=== PATIENT | male | born 1995 | race Caucasian/White ===

== ENCOUNTER 2018-01-24 23:29 | Emergency (ER) | payer OTHER ==
[2018-01-24 23:35] VITALS: BP 129/73
--- NOTE | 2018-01-25 00:10 | EDPHY ---
H & P Stated Complaint: R ankle injury - Personal History Current Tetanus/Diphtheria Vaccine: Yes Current Tetanus Diphtheria and Acellular Pertussis (TDAP): Yes - Medical/Surgical History Hx Asthma: No Hx Chronic Respiratory Disease: No Hx Diabetes: No Hx Cardiac Disease: No Hx Renal Disease: No Hx Cirrhosis: No Hx Alcoholism: No Hx HIV/AIDS: No Hx Splenectomy or Spleen Trauma: No Other PMH: Denies - Social History Smoking Status: Never smoked Time Seen by Provider: 01/24/18 23:45 HPI/ROS: Chief complaint: Right ankle injury History of present illness: This is a 22-year-old male who presents to the emergency department for a right ankle injury. Patient was bouldering when he fell off the wall landing onto his ankle and twisting it. Since then he has had pain and swelling. No report of open wounds. No abnormal coolness or paresthesias in the foot. No report of trauma to other parts of the body. ( Pelon Chahal) - Physical Exam Exam: General: Alert, nontoxic Skin: No open wounds to the right lower extremity. Musculoskeletal: Edema to the ankle. Tenderness over the lateral aspect of the ankle. Achilles is intact. The knee, proximal lower leg and foot are nontender. He can move the toes well. Muscle compartments are soft. Vascular: DP and PT pulses 2+. Cap refill brisk in the right toes. Neurologic: Sensation intact throughout the right foot and leg. (Pelon Chahal) Constitutional: Initial Vital Signs Temperature (C) 36.5 C 01/24/18 23:30 Heart Rate 63 01/24/18 23:30 Respiratory Rate 16 01/24/18 23:30 Blood Pressure 129/73 H 01/24/18 23:30 O2 Sat (%) 98 01/24/18 23:30 O2 Delivery Mode Room Air Allergies/Adverse Reactions: No Known Allergies Allergy (Unverified 01/24/18 23:35) Home Medications: Medication Instructions Recorded NK [No Known Home Meds] 01/24/18 Medical Decision Making - Diagnostics Imaging: I viewed and interpreted images myself - Diagnostics Imaging Results: Imaging Impressions Ankle X-Ray 01/24/18 23:37 Impression: Minimally displaced oblique spiral intra-articular distal right fibula metaphyseal fracture. Procedures: Procedure: Splint placement. A posterior short-leg splint was applied. After application of the splint I returned and re-examined the patient. The splint was adequately immobilizing the joint and distal to the splint the patient's circulation and sensation was intact. (Pelon Chahal) ED Course/Re-evaluation: Patient seen under the supervision of my secondary supervising physician Dr. Pippa Rich. Patient presents for a right ankle injury. X-ray confirms a fracture. The leg is neurovascularly intact. By history and physical exam no evidence of trauma to other parts of the body. Patient is splinted. He is discharged home. He is referred to orthopedics for recheck next week. Return precautions are given. The patient voiced understanding and agreement with plan. (Pelon Chahal) PHYSICIAN DOCUMENTATION: The patient was evaluated and managed by the Physician Prepress Supervisor. My co- signature indicates that I have reviewed this chart and I agree with the findings and plan of care as documented. I am the secondary supervising physician. (Pippa Rich) Differential Diagnosis: Included but not limited to contusion, sprain or strain, bony fracture (Pelon Chahal) - Data Points Medications Given: Discontinued Medications Hydrocodone Bitart/Acetaminophen ([place] 5/325mg Prepack#6) 1 btl TAKEHOME EDNOW ONE Stop: 01/25/18 00:13 Last Admin: 01/25/18 00:18 Dose: 1 btl Ibuprofen (Motrin) 800 mg PO EDNOW ONE Stop: 01/25/18 00:12 Last Admin: 01/25/18 00:18 Dose: 800 mg Departure - Departure Disposition: Home, Routine, Self-Care Clinical Impression: Ankle fracture Qualifiers: Encounter type: initial encounter Fracture type: closed Laterality: right Qualified Code(s): S82.891A - Other fracture of right lower leg, initial encounter for closed fracture Condition: Good Instructions: Hydrocodone/Acetaminophen (By mouth), Ankle Fracture (ED) Additional Instructions: Follow-up with Orthopedics next week for recheck Use ibuprofen 600 mg 3 times a day for the next 2-3 days for pain control Elevate the injury as much as possible Ice the injury, 20 min on, 3 times daily for the next 3 days If symptoms worsen or new symptoms develop return to the emergency room for recheck Referrals: NONE *PRIMARY CARE P,. [Primary Care Provider] - As per Instructions Crispin Powers MD [Medical Doctor] - As per Instructions
[2018-01-25] MEDS ORDERED: IBUPROFEN 800 MG TAB PO ONE (00:11)
[2018-01-25] MEDS ORDERED: HYDROCOD/APAP 5/325 PREPACK#6 BTL TAKEHOME ONE (00:12)
== END 2018-01-25 00:25 | disposition home or self-care (01) ==
DX: S82.441A Displaced spiral fracture of shaft of right fibula, initial encounter for closed fracture (principal); S82.431A Displaced oblique fracture of shaft of right fibula, initial encounter for closed fracture; W19.XXXA Unspecified fall, initial encounter

== ENCOUNTER 2018-01-31 05:41 | Day surgery (SDC) | payer OTHER ==
--- NOTE | 2018-01-30 21:37 | GHP ---
[f rep st] PREOP HISTORY AND PHYSICAL DATE OF ADMISSION: 01/31/2018 DATE OF SURGERY: 01/31/2018. CHIEF COMPLAINT: Right ankle. HISTORY OF PRESENT ILLNESS: Patient is a 22-year-old, who sustained a fall while climbing. PAST MEDICAL HISTORY: Unremarkable. MEDICINES: ALLERGIES: No drug allergies. SOCIAL HISTORY: PHYSICAL EXAM: HEENT: Head is normocephalic. Pupils equal, round, and reactive to light. Sclerae intact. GENERAL APPEARANCE: He is alert and oriented x3 in mild distress secondary to his ankle. CHEST: Clear to auscultation. HEART: Regular rate and rhythm. No murmurs or gallops. ABDOMEN : Soft, nontender, and nondistended. No organomegaly. GENITAL/RECTAL/BREASTS : Deferred. EXTREMITIES: Marked tenderness to right ankle lateral malleolus ASSESSMENT: Right lateral malleolus fracture. PLAN: ORIF right lateral malleolus fracture. /[id number]/MODL MTDD
[2018-01-31] MEDS ORDERED: ceFAZolin 2 GM/DEXTROSE 100 ML IV ONE (05:46)
[2018-01-31] MEDS ORDERED: LIDOCAINE 1% 2 ML INJ ID PRN (05:47)
[2018-01-31] MEDS ORDERED: LR 1,000 ML IV ONE (05:47)
[2018-01-31] MEDS ORDERED: fentaNYL 100 MCG/2 ML INJ ONE (06:37)
[2018-01-31] MEDS ORDERED: PROPOFOL 200 MG/20 ML VIAL ONE (06:37)
[2018-01-31] MEDS ORDERED: MIDAZOLAM 2 MG/2 ML VIAL IVP ONE (06:49)
--- NOTE | 2018-01-31 06:49 | PDANEPAE ---
ANE History of Present Illness traumatic fx here for ORIF ANE Past Medical History - Cardiovascular History Hx Hypertension: No Hx Arrhythmias: No Hx Chest Pain: No Hx Coronary Artery / Peripheral Vascular Disease: No Hx CHF / Valvular Disease: No Hx Palpitations: No Cardiovascular History Comment: VASOVAGAL RESPONSE IN PAST - Pulmonary History Hx COPD: No Hx Asthma/Reactive Airway Disease: No Hx Recent Upper Respiratory Infection: No Hx Oxygen in Use at Home: No Hx Sleep Apnea: No Sleep Apnea Screening Result - Last Documented: Negative - Neurologic History Hx Cerebrovascular Accident: No Hx Seizures: No Hx Dementia: No - Endocrine History Hx Diabetes: No - Renal History Hx Renal Disorders: No - Liver History Hx Hepatic Disorders: No - Neurological & Psychiatric Hx Hx Neurological and Psychiatric Disorders: No - Cancer History Hx Cancer: No - Congenital Disorder History Hx Congenital Disorders: No - GI History Hx Gastrointestinal Disorders: No - Other Health History Other Health History: NEG - Chronic Pain History Chronic Pain: No - Surgical History Prior Surgeries: NONE ANE Review of Systems Review of Systems: - Exercise capacity Exercise capacity: >=4 METS METS (RN): 6 METS ANE Patient History - Allergies Allergies/Adverse Reactions: No Known Allergies Allergy (Unverified 01/24/18 23:35) - Home Medications Home Medications: Ibuprofen 01/29/18 [Last Taken 01/28/18] Vicodin 5-300 mg Tablet 01/29/18 [Last Taken 01/28/18] - NPO status NPO Status: no food or drink >8 hours NPO Since - Liquids (Date): 01/31/18 NPO Since - Liquids (Time): 00:00 NPO Since - Solids (Date): 01/30/18 NPO Since - Solids (Time): 22:00 - Anes Hx Anes Hx: no prior problems - Smoking Hx Smoking Status: Never smoked - Alcohol Use Alcohol Use: Occasionally - Family Anes Hx Family Anes Hx: none ANE Labs/Vital Signs - Vital Signs Blood Pressure: 137/82 Heart Rate: 83 Respiratory Rate: 18 O2 Sat (%): 96 Height: 190.5 cm Weight: 81.647 kg ANE Physical Exam - Airway Neck exam: FROM Mallampati Score: Class 2 Mouth exam: normal dental/mouth exam - Pulmonary Pulmonary: no respiratory distress, clear to auscultation - Cardiovascular Cardiovascular: regular rate and rhythym, no murmur, rub, or gallop - ASA Status ASA Status: I ANE Anesthesia Plan Anesthesia Plan: GA w LMA [facility] Anesthesia: single shot NB, popliteal SNB
[2018-01-31] MEDS ORDERED: MIDAZOLAM 2 MG/2 ML VIAL ONE (07:17)
[2018-01-31] MEDS ORDERED: NALOXONE HCL 0.4 MG/ML INJ IVP PRN (08:24)
[2018-01-31] MEDS ORDERED: PROMETHAZINE HCL 25 MG/ML INJ IVP PRN (08:24)
[2018-01-31] MEDS ORDERED: fentaNYL 100 MCG/2 ML INJ IVP PRN (08:24)
[2018-01-31] MEDS ORDERED: ONDANSETRON 4 MG/2 ML VIAL IVP PRN (08:24)
--- NOTE | 2018-01-31 08:24 | POSTANESTH ---
Post Anesthetic Evaluation Cardiovascular Status: Normal, Stable, Similar to Pre-Op Cond Respiratory Status: Normal, Stable, Similar to Pre-op Cond. Level of Consciousness/Mental Status: Can Participate in Eval, Alert and Oriented Pain Control: Adequate, Prn Tx Ordered Nausea/Vomiting Control: Adequate, Prn Tx Ordered Complications Possibly Related to Anesthesia: None Noted
--- NOTE | 2018-01-31 08:25 | POSTOPPROG ---
Post Op Note Date of Operation: 01/31/18 Surgeon: Eddi Ruiz Anesthesia: LMA Pre-op Diagnosis: R lat mal fx Post-op Diagnosis: same Procedure: ORIF R lat mal fx Inf/Abcess present in the surg proc area at time of surgery?: No EBL: Minimal
[2018-01-31 09:03] VITALS: BP 116/68
--- NOTE | 2018-01-31 11:04 | GOP ---
[f rep st] OPERATIVE REPORT DATE OF OPERATION: 01/31/2018 SURGEON: Eddi Ruiz MD ANESTHESIA: General plus popliteal block performed by the anesthesiologist at my request for postoperative pain management. PREOPERATIVE DIAGNOSIS: Right lateral malleolus fracture. POSTOPERATIVE DIAGNOSIS: Right lateral malleolus fracture. PROCEDURE PERFORMED: Open reduction, internal fixation, right lateral malleolus fracture. FINDINGS: ESTIMATED BLOOD LOSS: Minimal. INDICATIONS: Patient is a 22-year-old, who sustained a fall while climbing resulting in a right lateral malleolus fracture. Based on the displaced unstable nature of his injury it was recommended that operative treatment consisting of open reduction, internal fixation be pursued. The patient acknowledged he understood the potential risks of the operation, including but not limited to, bleeding, infection, neurovascular damage, loss of limb or limb function, malunion, nonunion, need for hardware removal, pain or functional limitations despite operative treatment, and anesthetic risks. He acknowledged he understood the potential risks, planned procedure, and postoperative plan well, and had all questions answered prior to surgery. He gave his consent for the operative procedure. DESCRIPTION OF PROCEDURE: The patient was brought to the operating room after IV antibiotics were administered. Popliteal block was performed by the anesthesiologist in preop holding at my request for postoperative pain management. He was placed in a supine position where general anesthetic was administered. A tourniquet was placed on his right calf, and the patient was transferred to a left lateral decubitus position on the operating room table with beanbag support, axillary roll, padding all bony surfaces. The right lower leg was prepped and draped in standard sterile fashion. After marking the incision an Adrian wrap exsanguination, the tourniquet was inflated to 250. A longitudinal incision was made just posterior to the distal fibula. Skin and subcutaneous tissue were sharply incised. Sharp dissection was carried just anterior to the peroneal tendons exposing the posterolateral aspect of the distal fibula. Limited periosteal reflection of the fracture site was performed , allowed reduction and hardware placement. Interpose fibrous tissue was carefully teased away with a dental pick. Based on the nature of the fracture plane a posterior "antiglide" plating approach was utilized. A 6 hole 1/3 tubular plate was malleted flat at its distal-most aspect. Just proximal to the fracture through the plate a 3.5 mm bicortical screw was placed in a posterior to anterior direction. As the screw was tightened, the fracture was anatomically reduced with the aid of a dental pick. With the fracture held in anatomically reduced fashion through the plate across the fracture site. A supplemental 3.5 mm bicortical screw was placed in the most proximal hole in the plate. Fluoroscopic views confirmed anatomic reduction and favorable hardware placement. Attention was directed toward closure. The deep fascia overlying the peroneal tendons was closed with 3-0 Vicryl suture in interrupted fashion. Subcutaneous tissue was closed with 3-0 Vicryl suture in interrupted fashion. The skin was closed with 4-0 nylon interrupted sutures. Wounds were dressed with sterile Adaptic, 4 x 4, and Webril and the leg was placed in a below the knee splint. The patient tolerated the procedure well, was taken to the recovery room, extubated in stable condition postoperatively. All sponge, needle, and instrument counts were reported to be correct. DRAINS: None. COMPLICATIONS: None. PLAN: The patient will be discharged home nonweightbearing on his operative extremity. /[id number]/MODL MTDD
== END 2018-01-31 10:00 | disposition home or self-care (01) ==
LOC: FSGY 05:41
PROVIDERS: ATTEND Orthopaedic Surgery Foot and Ankle Surgery
PROC: 0QSJ04Z Reposition Right Fibula with Internal Fixation Device, Open Approach (ICD-10-PCS; principal; 2018-01-31 07:15)
DX: S82.61XA Displaced fracture of lateral malleolus of right fibula, initial encounter for closed fracture (principal); Y93.31 Activity, mountain climbing, rock climbing and wall climbing; W19.XXXA Unspecified fall, initial encounter; Y99.8 Other external cause status
CPT/HCPCS: C1713; J0690; J2250; J2704; J3010

== ENCOUNTER 2018-03-16 22:12 | Observation (INO) | payer OTHER ==
[2018-03-16] MEDS ORDERED: METOCLOPRAMIDE 10 MG/2 ML VIAL IVP ONE (22:27)
[2018-03-16] MEDS ORDERED: NS 1,000 ML IV ONE ×2 (22:27→23:14)
--- NOTE | 2018-03-16 22:30 | EDPHY ---
H & P Stated Complaint: syncopal episode x3, lightheaded, nausea Time Seen by Provider: 03/16/18 22:19 HPI/ROS: Chief Complaint: Syncope, lightheaded HPI: 22-year-old male's presenting with 3 syncopal events today. Patient states he woke up this morning feeling very lightheaded. He got up and " blacked out". He did not fall or hit his head. He states later today he was sitting at a desk began feeling lightheaded again and once again lost consciousness. This happened a 3rd time about 30 min ago while at home at rest. He fractured his ankle under 25 of January in had surgery on January 31. He is currently in a walking boot. He has been ambulating and weight-bearing for the last few days. No chest pain. No shortness of breath. No palpitations. Does not have a history of similar episodes in the past. No family history of clots cardiac disease at a young age or sudden cardiac . He has had decreased appetite. Does not smoke. Drinks occasional alcohol but not heavily recently. No other drug use. ROS: 10 point Review of Systems is negative except as noted in the HPI. PMH: Ankle fracture Social History: No smoking, occasional alcohol, no recreational drug use Family History: non-contributory Physical Exam: Vital signs: Heart rate of 75, blood pressure 158/83, respiratory rate 18, oxygen saturations 100%, temperature 36.3. Gen: Awake, Alert, No Distress HEENT: Nose: no rhinorrhea Eyes: PERRLA, EOMI Mouth: Moist mucosa Neck: Supple, no JVD Chest: nontender, lungs clear to auscultation Heart: S1, S2 normal, no murmur Abd: Soft, non-tender, no guarding Back: no CVA tenderness, no midline tenderness Ext: Right foot is in an orthopedic boot. No calf tenderness or swelling, non- tender Skin: no rash Neuro: CN II-XII intact, Sensation grossly intact, Strength 5/5 in bilateral upper and lower extremities - Personal History Current Tetanus/Diphtheria Vaccine: No - Medical/Surgical History Hx Asthma: No Hx Chronic Respiratory Disease: No Hx Diabetes: No Hx Cardiac Disease: No Hx Renal Disease: No Hx Cirrhosis: No Hx Alcoholism: No Hx HIV/AIDS: No Hx Splenectomy or Spleen Trauma: No Other PMH: R ankle sx - Social History Smoking Status: Never smoked Constitutional: Initial Vital Signs Temperature (C) 36.3 C 03/16/18 22:13 Heart Rate 75 03/16/18 22:13 Respiratory Rate 18 03/16/18 22:13 Blood Pressure 158/83 H 03/16/18 22:13 O2 Sat (%) 100 03/16/18 22:13 O2 Delivery Mode Room Air Allergies/Adverse Reactions: No Known Allergies Allergy (Verified 03/16/18 22:16) Home Medications: Medication Instructions Recorded NK [No Known Home Meds] 03/16/18 Medical Decision Making - Diagnostics EKG Interpretation: ECG time 10/08/2033, sinus rhythm with a rate of 58, normal axis, some nonspecific interventricular conduction delay. No acute ST or T-wave changes. ED Course/Re-evaluation: 22-year-old with nausea and syncope x3 today. He has got a nonspecific interventricular conduction delay on his ECG. Laboratory evaluations are unremarkable. He did have ankle surgery month and a half ago and is in a orthopedic boot. His D-dimer is normal. He is hydrated here. Will re- evaluate after IV hydration. Case discussed with Dr. Cowan, cardiology. He he has recommended that given the 3 syncopal events which were seemingly non provoked the patient should be admitted for telemetry and echocardiogram in the morning. He will plan to consult on the patient tomorrow. I have discussed with Dr. Wahl, hospitalist. He will admit to his service for further monitoring and care. - Data Points Laboratory Results: Laboratory Results 03/16/18 23:00 03/16/18 22:40 03/16/18 03/16/18 03/16/18 23:00 22:42 22:40 WBC 11.36 10^3/uL H 10^3/uL (3.80-9.50) RBC 5.09 10^6/uL 10^6/uL (4.40-6.38) Hgb 15.0 g/dL g/dL (13.7-17.5) Hct 42.9 % % (40.0-51.0) MCV 84.3 fL fL (81.5-99.8) MCH 29.5 pg pg (27.9-34.1) MCHC 35.0 g/dL g/dL (32.4-36.7) RDW 12.1 % % (11.5-15.2) Plt Count 250 10^3/uL 10^3/uL (150-400) MPV 9.2 fL fL (8.7-11.7) Neut % (Auto) 76.6 % H % (39.3-74.2) Lymph % (Auto) 12.0 % L % (15.0-45.0) [place] % (Auto) 7.7 % % (4.5-13.0) Eos % (Auto) 2.6 % % (0.6-7.6) Baso % (Auto) 0.4 % % (0.3-1.7) Nucleat RBC Rel Count 0.0 % % (0.0-0.2) Absolute Neuts (auto) 8.71 10^3/uL H 10^3/uL (1.70-6.50) Absolute Lymphs (auto) 1.36 10^3/uL 10^3/uL (1.00-3.00) Absolute Monos (auto) 0.88 10^3/uL H 10^3/uL (0.30-0.80) Absolute Eos (auto) 0.29 10^3/uL 10^3/uL (0.03-0.40) Absolute Basos (auto) 0.04 10^3/uL 10^3/uL (0.02-0.10) Absolute Nucleated RBC 0.00 10^3/uL 10^3/uL (0-0.01) Immature Gran % 0.7 % % (0.0-1.1) Immature Gran # 0.08 10^3/uL 10^3/uL (0.00-0.10) D-Dimer Sodium 136 mEq/L mEq/L (135-145) Potassium 4.1 mEq/L mEq/L (3.3-5.0) Chloride 103 mEq/L mEq/L (97-110) Carbon Dioxide 22 mEq/l mEq/l (22-31) Anion Gap 11 mEq/L mEq/L (8-16) BUN 13 mg/dL mg/dL (7-23) Creatinine 1.0 mg/dL mg/dL (0.7-1.3) Estimated GFR > 60 Glucose 108 mg/dL H mg/dL (70-100) Calcium 9.9 mg/dL mg/dL (8.5-10.4) Total Bilirubin 0.6 mg/dL mg/dL (0.1-1.4) AST 46 IU/L IU/L (17-59) ALT 56 IU/L IU/L (21-72) Alkaline Phosphatase 139 IU/L H IU/L (38-126) POC Troponin I 0.00 ng/mL ng/mL (0.00-0.08) Total Protein 8.1 g/dL g/dL (6.3-8.2) Albumin 4.9 g/dL g/dL (3.5-5.0) 03/16/18 22:40 WBC RBC Hgb Hct MCV MCH MCHC RDW Plt Count MPV Neut % (Auto) Lymph % (Auto) [place] % (Auto) Eos % (Auto) Baso % (Auto) Nucleat RBC Rel Count Absolute Neuts (auto) Absolute Lymphs (auto) Absolute Monos (auto) Absolute Eos (auto) Absolute Basos (auto) Absolute Nucleated RBC Immature Gran % Immature Gran # D-Dimer < 0.27 ug/mLFEU ug/mLFEU (0.00-0.50) Sodium Potassium Chloride Carbon Dioxide Anion Gap BUN Creatinine Estimated GFR Glucose Calcium Total Bilirubin AST ALT Alkaline Phosphatase POC Troponin I Total Protein Albumin Medications Given: Discontinued Medications Sodium Chloride (Ns) 1,000 mls @ 0 mls/hr IV ONCE ONE; Wide Open PRN Reason: Protocol Stop: 03/16/18 22:28 Last Admin: 03/16/18 22:39 Dose: 1,000 mls Sodium Chloride (Ns) 1,000 mls @ 0 mls/hr IV ONCE ONE; Wide Open PRN Reason: Protocol Stop: 03/16/18 23:15 Last Admin: 03/16/18 23:33 Dose: 1,000 mls Metoclopramide HCl (Reglan Injection) 10 mg IVP EDNOW ONE Stop: 03/16/18 22:28 Last Admin: 03/16/18 22:39 Dose: 10 mg Point of Care Test Results: Chemistry 03/16/18 22:42 POC Troponin I 0.00 ng/mL ng/mL (0.00-0.08) Departure - Departure Disposition: [facility] In[facility] Acute Clinical Impression: Syncope Condition: Fair Referrals: NONE *PRIMARY CARE P,. [Primary Care Provider] - As per Instructions
--- NOTE | 2018-03-16 22:36 | CPEKG ---
Heart Rate: 58 RR Interval: 1034 P-R Interval: 176 QRSD Interval: 116 QT Interval: 408 QTC Interval: 401 P Clements: 22 QRS Clements: 69 T Wave Clements: 51 EKG Severity - ABNORMAL ECG - EKG Impression: SINUS RHYTHM EKG Impression: NONSPECIFIC INTRAVENTRICULAR CONDUCTION DELAY Electronically Signed By: Phill Braga 17-Mar-2018 06:17:33
[2018-03-16 23:10] LABS: PLATELET COUNT 250 10^3/uL (150-400)
[2018-03-17] MEDS ORDERED: ONDANSETRON 4 MG/2 ML VIAL IVP PRN (00:01)
[2018-03-17] MEDS ORDERED: ONDANSETRON DISINTEGRATING 4 MG TAB PO PRN (00:01)
[2018-03-17] MEDS ORDERED: ACETAMINOPHEN 325 MG TAB PO PRN (00:01)
--- NOTE | 2018-03-17 01:27 | PDGENHP ---
History and Physical - Chief Complaint Syncope - History of Present Illness 22 yo M w/ no significant PMHx presents with syncope. The patient suffered 3 syncopal episodes today. The first two occurred while he was walking to bathroom in quick succession. The third occurred later in the day while he was sitting at his desk. He tells me just before losing consciousness he noted nausea, tunnel vision, and heart palpitations. He denies prior similar episodes or any prior cardiac or neurologic issues. He denies post-ictal confusion. He denies family history of early cardiac disease or sudden cardiac . At the time of my evaluation he is asymptomatic. He states he feels better after fluids. Case discussed with ED physician Dr. Braga; available records reviewed. Of note , he had a R ankle surgery about a month ago. He is in a walking boot for this. He states he is using acetaminophen only for pain control. History Information - Allergies/Home Medication List Allergies/Adverse Reactions: No Known Allergies Allergy (Verified 03/16/18 22:16) Home Medications: NK [No Known Home Meds] 03/16/18 [Last Taken Unknown] I have personally reviewed and updated: family history, medical history - Past Medical History no pertinent PMH - Surgical History Additional surgical history: R ankle surgery - Family History Additional family history: Denies family history of sudden cardiac - Social History Smoking Status: Never smoked Review of Systems Review of Systems: ROS: 10pt was reviewed & negative except for what was stated in HPI & below Physical Exam Physical Exam: Temp Pulse Resp BP Pulse Ox 36.9 C 61 16 145/77 H 94 03/17/18 00:44 03/17/18 00:44 03/17/18 00:44 03/17/18 00:44 03/17/18 00:44 Constitutional: no apparent distress, not in pain Eyes: PERRL, EOMI Ears, Nose, Mouth, Throat: moist mucous membranes, no oral mucosal ulcers Cardiovascular: regular rate and rhythym, no murmur, rub, or gallop Respiratory: no respiratory distress, clear to auscultation Gastrointestinal: normoactive bowel sounds, soft, non-tender abdomen Skin: warm, normal color Musculoskeletal: full muscle strength, no muscle tenderness, other (boot on R foot) Neurologic: AAOx3, CN II-XII Intact Psychiatric: interacting appropriately, not anxious Lab Data & Imaging Review 03/16/18 23:00 03/16/18 22:40 WBC 11.36 10^3/uL (3.80-9.50) H 03/16/18 23:00 RBC 5.09 10^6/uL (4.40-6.38) 03/16/18 23:00 Hgb 15.0 g/dL (13.7-17.5) 03/16/18 23:00 Hct 42.9 % (40.0-51.0) 03/16/18 23:00 MCV 84.3 fL (81.5-99.8) 03/16/18 23:00 MCH 29.5 pg (27.9-34.1) 03/16/18 23:00 MCHC 35.0 g/dL (32.4-36.7) 03/16/18 23:00 RDW 12.1 % (11.5-15.2) 03/16/18 23:00 Plt Count 250 10^3/uL (150-400) 03/16/18 23:00 MPV 9.2 fL (8.7-11.7) 03/16/18 23:00 Neut % (Auto) 76.6 % (39.3-74.2) H 03/16/18 23:00 Lymph % (Auto) 12.0 % (15.0-45.0) L 03/16/18 23:00 Grayson % (Auto) 7.7 % (4.5-13.0) 03/16/18 23:00 Eos % (Auto) 2.6 % (0.6-7.6) 03/16/18 23:00 Baso % (Auto) 0.4 % (0.3-1.7) 03/16/18 23:00 Nucleat RBC Rel Count 0.0 % (0.0-0.2) 03/16/18 23:00 Absolute Neuts (auto) 8.71 10^3/uL (1.70-6.50) H 03/16/18 23:00 Absolute Lymphs (auto) 1.36 10^3/uL (1.00-3.00) 03/16/18 23:00 Absolute Monos (auto) 0.88 10^3/uL (0.30-0.80) H 03/16/18 23:00 Absolute Eos (auto) 0.29 10^3/uL (0.03-0.40) 03/16/18 23:00 Absolute Basos (auto) 0.04 10^3/uL (0.02-0.10) 03/16/18 23:00 Absolute Nucleated RBC 0.00 10^3/uL (0-0.01) 03/16/18 23:00 Immature Gran % 0.7 % (0.0-1.1) 03/16/18 23:00 Immature Gran # 0.08 10^3/uL (0.00-0.10) 03/16/18 23:00 D-Dimer < 0.27 ug/mLFEU (0.00-0.50) 03/16/18 22:40 Sodium 136 mEq/L (135-145) 03/16/18 22:40 Potassium 4.1 mEq/L (3.3-5.0) 03/16/18 22:40 Chloride 103 mEq/L (97-110) 03/16/18 22:40 Carbon Dioxide 22 mEq/l (22-31) 03/16/18 22:40 Anion Gap 11 mEq/L (8-16) 03/16/18 22:40 BUN 13 mg/dL (7-23) 03/16/18 22:40 Creatinine 1.0 mg/dL (0.7-1.3) 03/16/18 22:40 Estimated GFR > 60 03/16/18 22:40 Glucose 108 mg/dL (70-100) H 03/16/18 22:40 Calcium 9.9 mg/dL (8.5-10.4) 03/16/18 22:40 Total Bilirubin 0.6 mg/dL (0.1-1.4) 03/16/18 22:40 AST 46 IU/L (17-59) 03/16/18 22:40 ALT 56 IU/L (21-72) 03/16/18 22:40 Alkaline Phosphatase 139 IU/L (38-126) H 03/16/18 22:40 POC Troponin I 0.00 ng/mL (0.00-0.08) 03/16/18 22:42 Total Protein 8.1 g/dL (6.3-8.2) 03/16/18 22:40 Albumin 4.9 g/dL (3.5-5.0) 03/16/18 22:40 Visualized and Interpreted EKG results: Yes EKG Interpretation: Positive for: normal sinsus rhythm Assessment & Plan Assessment: 22 yo M w/ no significant PMHx presents with syncope. Plan: 1. Syncope - Unclear etiology, occurred 3 times on the day of admission. Two episodes occurred while walking to the bathroom and once while sitting. He describes nausea, tunnel vision, and palpitations just prior to the episodes; no shaking, tongue biting, or post-ictal confusion to suggest seizures. He denies significant dehydration or poor PO intake. ECG relatively normal and in NSR (personally interpreted). - Admit to PCU for observation - S/p 2L IVF - Monitor on telemetry - TTE to assess cardiac structure and function - Orthostatic VS in the AM - Cardiology service consulted in the ED, will see patient in the morning Diet - Regular Code - Full Ppx - Low risk, ambulate TID Dispo - Admit under observation status
[2018-03-17 04:38] LABS: PLATELET COUNT 219 10^3/uL (150-400)
--- NOTE | 2018-03-17 09:27 | ASMTCMCOM ---
CM Note CM Note Notes: Chart reviewed. 22 year old male s/p ankle fracture in ortho boot suffered 3 syncopal episodes and is admitted via ED for cardiac workup. No needs anticipated at this time. CM available should needs arise. Plan: TBD likely home independently. Date Signed: 03/17/2018 09:26 AM Electronically Signed By:Ramona Schmitt RN
--- NOTE | 2018-03-17 11:42 | ECHO ---
[email or web address] [address] [address] Main: [phone] Fax: Transthoracic Echocardiogram Name: GURINDER JULIO MR#: [id number] Study Date: 03/17/2018 Study Time: 10:15 AM Date of : 1995 Age: 22 year(s) Height: 190.5 cm (75 in.) Weight: 81.65 kg (180 lb.) BSA: 2.1 m2 Gender: Male Examination: Echo Indication: Syncope Image Quality: Contrast: Requested by: Freddy Friedman BP: 142 mmHg/103 mmHg Heart Rate: Rhythm: Normal sinus rhythm Indication: Syncope Procedure Staff Senior Controls Engineer: Jarad Mae RDCS Reading Physician: Reuben Sanchez MD Requesting Provider: Conclusions: Normal global systolic LV function. EF is 62 %. The mitral valve is normal in appearance and function. The aortic valve is normal in appearance and function. Measurements: Chambers Valvular Assessment AV/MV Valvular Assessment TV/PV Normal Normal Normal Name Value Range Name Value Range Name Value Range Ao Alexandra (MM): 3.0 cm (2.2 cm-3.7 AV Vmax: 1.34 m/s (1 m/s-1.7 TR Vmax: 2.36 mm/s ( - ) cm) m/s) TR PGmax: 22 mmHg ( - ) IVSd (2D): 0.8 cm (0.6 cm-1.1 AV maxP mmHg ( - ) syst. PAP: 27 mmHg ( - ) cm) LVOT Vmax: 0.78 m/s (0.7 m/s-1.1 PV Vmax: 0.98 m/s (0.6 m/s-0.9 LVDd (2D): 4.8 cm (4.2 cm-5.9 m/s) m/s) cm) MV E Vmax: 0.81 m/s ( - ) PV PGmax: 4 mmHg ( - ) LVDs (2D): 3.2 cm (2.1 cm-4 MV A Vmax: 0.36 m/s ( - ) cm) MV E/A: 2.25 ( - ) LVPWd (2D): 1.0 cm (0.6 cm-1 cm) LVEF (2D): 62 (>=54 %) Continued Measurements: Chambers Valvular Assessment AV/MV Valvular Assessment TV/PV Name Value Name Value Name Value LADs Lon.1 cm MV E' Septal: 0.14 m/s CVP (est.): 5 mmHg LA Area: 15.4 cm2 MV E/E' Septal: 5.90 MV E/E' Lateral: 3.30 Patient: GURINDER JULIO Study Date: 03/17/2018 Page 1 of 2 10:15 AM Findings: Left Ventricle: Normal size left ventricle. No LV hypertrophy. Normal global systolic LV function. EF is 62 %. No regional wall motion abnormality. Normal diastolic LV function. Right Ventricle: Normal size right ventricle. Left Atrium: The left atrium is normal in size. Right Atrium: The right atrium is normal in size. Mitral Valve: The mitral valve is normal in appearance and function. Aortic Valve: The aortic valve is normal in appearance and function. Tricuspid Valve: The tricuspid valve is normal in appearance and function. Pulmonic Valve: The pulmonic valve is normal in appearance and function. Aorta: The aorta is normal. Pericardium: No pericardial effusion. (No Signature Object) Patient: GURINDER JULIO Study Date: 03/17/2018 Page 2 of 2 10:15 AM [id number]
--- NOTE | 2018-03-17 12:14 | GCON ---
[f rep st] CONSULTATION CARDIOLOGY CONSULTATION INDICATION FOR CARDIOLOGY CONSULTATION: Syncopal events. Requesting Consultation: Dr. Josh Grajeda of Hospitalist services. HISTORY OF PRESENT ILLNESS: The patient is a 22-year-old male. Reporting no significant cardiac history, stating over the last week is noticing a mild sore throat in which he felt he was recovering, no other symptoms out of his normal usual health. Stating yesterday afternoon around 2 p.m., was walking to the bathroom, and reporting felt a sudden lightheadedness, reporting tunnel vision, and reported falling to the ground. He reported waking up about 30 seconds later, feeling significant fatigue. Was able to go to the bathroom, and returned. Reported later in the day, having similar symptoms with another syncopal event lasting approximately the same amount of time, and felt that potentially he may be getting sick, but did not do anything. Later that evening , at 10 p.m., he was sitting at his desk, and reporting a 3rd event, with a total loss of consciousness for less than 30 seconds. He reports at that point , it raised concern and he came to the emergency department for further evaluation. He reports before any of his syncopal events, denying of any significant palpitations, potentially may be diaphoretic, but no nausea. He reported after event, with regaining consciousness, he felt a "heavy heartbeat "that lasted for approximately 10-15 minutes, reporting it as regular. Reports all events were witnessed by his roommate, reporting no seizure-like activities. Denies biting tongue. As mentioned above, reporting each incident with a loss of consciousness between 30 seconds to a minute. Denies of any incontinence. Upon arrival to the emergency department, electrocardiogram was done, showing sinus rhythm, normal axis, with nonspecific interventricular conduction delay. He reports no chest pressure or pain. As mentioned above, did have a sore throat for a week, but thought he was recovering. Denying of any fevers, chills , or night sweats. He had recently broke his right fibula while rock climbing approximately 5 weeks ago, in which required open reduction, internal fixation and recently had followed up with Orthopedics, reporting normal healing. He denies of any chest pressure or pain, reports no orthopnea, PND, edema, or symptoms suggestive of TIA or CVA. Denies of any significant current cardiac risk factors (no hypertension, hyperlipidemia, family history of coronary artery disease under the age of 60, peripheral vascular disease). Reports no family history of sudden cardiac . Upon arrival to the emergency department, it was felt best with his syncopal events, he be further admitted to the telemetry floor for further evaluation, in which he has been on continuous cardiac monitoring showing sinus rhythm, with no malignant arrhythmias or pauses. PAST MEDICAL HISTORY: The patient with recent fibula fracture. PAST SURGICAL HISTORY: Reporting 4 weeks ago, open reduction and internal fixation of right fibula. No other significant surgeries. FAMILY HISTORY: Patient does report paternal grandfather had a myocardial infarction, greater than age 60, but denies any family history of coronary artery disease, less than the age of 60, and no family history of sudden cardiac . SOCIAL HISTORY: The patient works part-time as an heat treating furnace tender, but with recent injury he is not doing it. 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 He is not . He lives with multiple roommates in a house. Denies any tobacco use, reports occasional alcohol use, denies of any illicit drug use. ALLERGIES: The patient has no known drug allergies. MEDICATIONS: At home, acetaminophen 325 mg p.o. daily p.r.n. REVIEW OF SYSTEMS: A 10-point review of systems done on patient, all negative except as mentioned above. PHYSICAL EXAMINATION: GENERAL APPEARANCE: Thin, well-groomed male. He is alert and oriented to person, place, time, situation. He appears to be under no acute distress. VITAL SIGNS: Current vital signs are blood pressure 145/85, heart rate 88, sinus rhythm on the monitor. Respirations are 12, saturating 99% on room air. Temperature of 36.7 degrees Celsius. HEENT: Head is normocephalic. Lips and tongue are pink and moist with no signs of cyanosis. Conjunctivae pink. NECK: Trachea is midline, +2 carotid pulses bilateral. No auscultated bruits, no jugular vein distention. RESPIRATORY: Lungs are clear to auscultation. No rhonchi, rales or wheezes, accessory muscle use. No intercostal muscle retraction noted. CARDIAC: Regular rate, regular rhythm, S1, S2. No S3, S4, gallops rubs or murmurs noted. ABDOMEN: Soft, nontender, bowel sounds x4 quadrants. No organomegaly. No palpable masses. SKIN: [place], warm, dry, no cyanosis, no clubbing, no peripheral edema. VASCULAR: +2 carotids bilateral, +2 radials bilateral, +1 dorsal pedal and posterior tibial pulses bilateral. LABORATORY STUDIES: Drawn this morning showing WBC of 9.43, hemoglobin of 14.0 , hematocrit of 40.0, platelet count 219. Sodium 142, potassium 4.0, chloride 106, CO2 was 25, BUN 11, creatinine 0.8, glucose 100, calcium 9.3, magnesium 1.9. Noted on admission, patient had a troponin of 0.00. D-dimer of less than 0.27. Noted mildly high alkaline phosphate of 139. Patient also had a tox screen, which was negative. STUDIES: Electrocardiogram, as mentioned above. ASSESSMENT AND PLAN: A 22-year-old male, with reported 1st onset of syncope with 3 events, 2 happening while standing going to the bathroom, and 1 happening sitting at his desk. He reports no irregular heartbeats or palpitations prior to the event, but "heavy heartbeats"after syncopal event lasting for approximately 10 15 min. Reporting as regular. Does report tunnel vision prior to each event. Report was witnessed by his roommates, with no seizure-like activity, biting, or postictal confusion. A 12-lead electrocardiogram done on admission was normal, negative D-dimer, negative troponin. Continuous equipment monitor phototypesetting has shown no malignant arrhythmias or pauses throughout his observation at PCU. Currently, transthoracic echocardiogram is pending. The patient did have orthostatic blood pressures done this morning showing no significant change between supine and standing, with normal heart rate response. At this time, echocardiogram is pending, if potentially no structural heart disease, would consider placing him on exercise treadmill, to see if inducible arrhythmias with stress. If that is negative, then would consider long-term monitoring, with setting him up with a 30-day [employer] monitor as an outpatient. This was discussed with the patient, and he was in agreement. Further recommendations, pending results of upcoming tests. /[id number]/MODL MTDD
[2018-03-17 12:59] VITALS: BP 155/83
--- NOTE | 2018-03-17 13:25 | CPR ---
[f rep st] NONINVASIVE CARDIAC PROCEDURE REPORT PROCEDURE: Exercise treadmill test. SUPERVISING H[employer]CHO[employer]UST[employer]S TEACHER: Dr. Hortencia Polk INDICATION FOR PROCEDURE: Syncopal event. PRE: After obtaining informed consent, the patient was placed on electrocardiogram. Initial EKG irma ws sinus rhythm, normal axis. No significant ST or T-wave abnormalities. RSR prime noted in V1 and V2. Initial blood pressure 116/82, saturation 97% on room air. Patient denies of chest pain, shortn ess of breath, or symptoms suggesting of ischemia. Note patient has history of right fibular fractur e and currently wearing a walking boot. STRESS: The patient placed on exercise treadmill, following standard Basilio protocol with the followi ng findings: 1. Patient exercised for 3 minutes 53 seconds. 2. 5.4 METS. 3. Patient obtained a heart rate of 117 beats per minute, which was 59% MPHR. 4. Patient had no chest pain, pressure, or symptoms suggesting of ischemia. Patient had no ST cortes es during peak exercise suggesting of ischemia. 5. No arrhythmias were noted throughout testing. 6. BP response at rest 116/82, peak 152/90. 7. SpO2 remained greater than 90% throughout testing. 8. Testing was stopped due to right leg fatigue. 9. Bustamante treadmill score 3. RECOVERY: Patient recovered for 5 minutes, heart rate returned back to baseline. Vital signs remain ed stable. He remained asymptomatic. No chest pain or pressure. No arrhythmias noted. Final blood pressure 128/82. IMPRESSION: A 22-year-old male reporting 3 syncopal events yesterday, 2 while standing, 1 while sitt ing. Lost consciousness for less than 30 seconds to a minute. Witnessed with no signs of seizure ac tivity. The patient did report mild heavy heartbeats post-syncopal events. Stress testing: Due to patient not being able to reach 85% MPHR, stress testing invalid for evaluati on for ischemia, but no arrhythmias noted with exertion. RECOMMENDATION: Throughout the patient's hospitalization, no arrhythmias noted. We will schedule hi m for a 30-day monitor to be worn at home. Consideration repeating exercise treadmill testing once h e is out of orthopedic boot. Results discussed with Dr. Polk and went over with hospital services. /[id number]/MODL
--- NOTE | 2018-03-17 17:20 | PDDCSUM ---
Discharge Summary Discharge Summary: Date of Admission: 03/16/2018 Date of Discharge: 03/17/2018 Consultants: cardiology Procedures: exercise stress test Brief Hospital Course by Diagnosis: 1. Syncope: 3 episodes, once while sitting and 2 others while walking to bathroom. No trauma or seizure activity. Orthostatics negative. D-dimer negative. TTE normal. Telemetry without malignant arrhythmia overnight. Unable to reach target heart rate with exercise stress test given orthopedic limitations but he did not develop any arrhythmias or symptoms at 59% max predicted HR. He will follow up with cardiology and obtain a 30 day cardiac event monitor. He was advised to not drive until this is done and also encouraged to be mindful of positional changes. 2. Right ankle surgery: Approximately 1 month ago. Tylenol PRN. Pending Tests at Discharge: none Items to Follow Up: 1. Follow up with cardiology for 30 day event monitor Medications: tylenol PRN Physical Exam: Vitals reviewed. Patient alert and in no distress. She was examined on day of discharge.
== END 2018-03-17 14:41 | disposition home or self-care (01) ==
LOC: F2W 03-17 00:31
PROVIDERS: ADMIT Student in an Organized Health Care Education/Training Program; ATTEND Student in an Organized Health Care Education/Training Program
DX: R55 Syncope and collapse (principal); E86.9 Volume depletion, unspecified
CPT/HCPCS: 93005; 93017; 93306; 96361; 96374; 99285; G0378; 80307; 84484-PO; G0480; J2765